=== PATIENT | female | born 1950 | race Caucasian/White ===

== ENCOUNTER 2017-03-31 20:41 | Emergency (ER) | payer OTHER, BC ==
[2017-03-31 21:00] VITALS: TEMP 98
[2017-03-31] MEDS ORDERED: methylPREDNISolone SOD SUCC 125 MG/2 ML VIAL IVP ONE (21:28)
[2017-03-31] MEDS ORDERED: FAMOTIDINE 20 MG/2 ML SDV IVP ONE (21:28)
[2017-03-31] MEDS ORDERED: ATENOLOL 50 MG TAB PO ONE (21:29)
[2017-03-31] MEDS ORDERED: LABETALOL HCL 50 MG/10 ML SYR IVP ONE (21:32)
[2017-03-31] MEDS ORDERED: LABETALOL HCL 5 MG/ML 20 ML MDV ONE (21:36)
[2017-03-31 23:03] VITALS: O2SAT 93
[2017-03-31] MEDS ORDERED: METOPROLOL TARTRATE 25 MG TAB PO ONE (23:10)
--- NOTE | 2017-03-31 23:10 | EDPHY ---
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 She states she was at a new restaurant and suddenly felt facial swelling to her left jaw area. She initially felt she might have some difficulty swallowing she took Zyrtec and came to the emergency department. She is visiting [place] currently and forgot to bring her medicines from [place]. She normally takes atenolol and hydrochlorothiazide for her blood pressure and has missed those doses for the last 4 days. Review of systems As per HPI-facial swelling General no fever no chills no weakness HEENT no eye pain no eye discharge. No eye redness, no sore throat Respiratory no cough, no shortness of breath Cardiac no chest pain, no peripheral edema GI no abdominal pain, no diarrhea, no constipation, no nausea, no vomiting no flank pain, no hematuria, no dysuria Musculoskeletal no myalgias, no joint pain Heme no easy bruising, no easy bleeding Endo no polyuria, no polydipsia Skin no rashes, no pruritus Neuro no syncope, no dizziness, no headaches Psych is no suicidal ideation, no homicidal ideation Past Medical/Surgical History: Hypertension Prior history of anaphylaxis Social History: Denies alcohol or drug use Smoking Status: Never smoked Physical Exam: 67-year-old female alert and oriented no acute distress slightly anxious, hypertensive 200/122, afebrile HEENT atraumatic normocephalic, extraocular muscles intact, anicteric Oropharynx negative for erythema negative exudate, tolerating her own secretions No uvular edema, positive erythema and swelling to left lateral face and left parotid Neck supple no meningismus Lungs clear to auscultation bilaterally Heart regular rate and rhythm without murmur rub or gallop Abdomen nondistended normoactive bowel sounds soft nontender Back no CVA tenderness, no step-offs, no spinal tenderness Extremities no cyanosis clubbing or edema Neuro alert and oriented, no focal deficits Constitutional: Initial Vital Signs Temperature (C) 36.6 C 03/31/17 20:57 Heart Rate 74 03/31/17 20:57 Respiratory Rate 20 03/31/17 20:57 Blood Pressure 202/122 H 03/31/17 20:57 O2 Sat (%) 98 03/31/17 20:57 O2 Delivery Mode Room Air Allergies/Adverse Reactions: No Known Allergies Allergy (Unverified 03/31/17 20:55) Home Medications: Medication Instructions Recorded Atenolol 50 mg PO 03/31/17 Atenolol [Tenormin 25 mg (*)] 25 mg PO DAILY #7 tab 03/31/17 CETIRIZINE HCL [ZYRTEC] 03/31/17 Hydrochlorothiazide [HCTZ (*)] 25 mg PO DAILY #7 tab 03/31/17 Medical Decision Making ED Course/Re-evaluation: Patient seen and evaluated for left facial swelling, concerning for allergic reaction. Her no other evidence of allergic reaction no uvular edema, no hives no wheezing. Patient given Benadryl, famotidine and Solu-Medrol IV with marked good resolution of facial swelling and erythema. Patient also given labetalol 10 mg IV for hypertension, with marked improvement given one dose metroprolol in ER Impression Possible allergic reaction with facial swelling markedly improved after medication Cannot entirely rule out sialolithiasis as a cause for transient swelling over left parotid Hypertension, secondary to missing medications for several days plan continue zyrtec as prescribed given bridge rx for one week of hctz, and atenolol - Data Points Medications Given: Discontinued Medications Atenolol (Tenormin) 50 mg PO EDNOW ONE Stop: 03/31/17 21:30 Last Admin: 03/31/17 21:35 Dose: Not Given Diphenhydramine HCl (Benadryl Injection) 25 mg IVP EDNOW ONE Stop: 03/31/17 21:27 Last Admin: 03/31/17 21:34 Dose: 25 mg Famotidine (Pepcid) 20 mg IVP EDNOW ONE Stop: 03/31/17 21:29 Last Admin: 03/31/17 21:34 Dose: 20 mg Labetalol HCl (Labetalol Hcl) 10 mg IVP ONCE ONE Stop: 03/31/17 21:33 Last Admin: 03/31/17 21:39 Dose: 10 mg Methylprednisolone Sodium Succinate (Solu-Medrol) 125 mg IVP EDNOW ONE Stop: 03/31/17 21:29 Last Admin: 03/31/17 21:34 Dose: 125 mg Metoprolol Tartrate (Lopressor) 25 mg PO EDNOW ONE Stop: 03/31/17 23:11 Last Admin: 03/31/17 23:15 Dose: 25 mg Departure - Departure Disposition: Home, Routine, Self-Care Clinical Impression: Allergic reaction, Hypertension, Facial swelling Condition: Good Instructions: Hypertension (ED), General Allergic Reaction (ED) Referrals: JUSTICE CASTILLO MD [Other] - As per Instructions Prescriptions: Atenolol [Tenormin 25 mg (*)] 25 mg PO DAILY #7 tab Hydrochlorothiazide [HCTZ (*)] 25 mg PO DAILY #7 tab
[2017-03-31 23:22] VITALS: BP 178/92; PULSE 68; RESP 18
== END 2017-03-31 23:18 | disposition home or self-care (01) ==
LOC: CED 20:41
DX: R22.0 Localized swelling, mass and lump, head (principal); I10 Essential (primary) hypertension; T78.40XA Allergy, unspecified, initial encounter
CPT/HCPCS: 96374; 96375; 99284; J1200; J3490